=== PATIENT | female | born 1940 | race Caucasian/White ===

== ENCOUNTER 2020-04-05 10:53 | Outpatient (CLI) | payer MEDICARE, OTHER ==
[2020-04-06 17:58] LABS: SARS-CoV-2 MS2 Positive; SARS-CoV-2 N Gene Negative; SARS-CoV-2 S Gene Negative; SARS-CoV-2 by NAA Not Detected (NotDetected); SARS-CoV-2 orf1ab Negative
== END 2020-04-05 10:54 | disposition home or self-care (01) ==
LOC: MADLAB 10:53
PROVIDERS: ATTEND Internal Medicine Cardiovascular Disease
DX: Z20.828 Contact with and (suspected) exposure to other viral communicable diseases (principal)
CPT/HCPCS: 87635; U0003